=== PATIENT | male | born 1990 | race Caucasian/White ===

== ENCOUNTER 2021-06-11 12:42 | Day surgery (SDCO) | payer MEDICARE, OTHER ==
[~2021-06-11] VITALS: Ht 167.6 cm; Wt 63.6 kg
[~2021-06-11 12:42] MED LIST: FURADANTIN25 MG/5 ML PO; MACROBID100 MG PO; PYRIDIUM100 MG PO
[2021-06-11 14:05] LABS: BASOPHIL 0.5 % (0-2); EOSINOPHIL 1.3 % (0-5); HCT 48.2 % (42.0-52.0); HGB 15.5 g/dl (13.2-18.0); LYMPHOCYTE 13.1 % (15-48); MCH 30.5 pg (25.0-31.0); MCHC 32.2 g/dL (32.0-36.0); MCV 94.9 fL (78.0-100.0); MONOCYTE 8.8 % (0-12); NEUTROPHIL 76.1 % (41-80); NRBC 0; PLT 297 K/uL (150-400); RBC 5.08 M/uL (4.70-6.00); RDW 12.6 % (11.5-14.0); WBC 9.5 K/uL (4.0-10.5)
[2021-06-11 14:16] LABS: ALBUMIN 3.8 g/dL (3.4-5.0); BILIRUBIN - TOTAL 0.3 mg/dL (0.2-1.0); C-REACTIVE PROTEIN 0.8 mg/dL (<=0.90); CREATININE 1.03 mg/dL (0.67-1.17); GLOBULIN (CALCULATION) 4.3 g/dL; MAGNESIUM 2.7 mg/dL (1.8-2.4); POTASSIUM 4.4 mmol/L (3.5-5.1); TOTAL PROTEIN 8.1 g/dL (6.4-8.2)
[2021-06-11 14:25] LABS: LACTIC ACID 1.8 mmol/L (0.4-1.9)
[2021-06-11] MEDS ORDERED: GEODON60 MG PO (20:24)
[2021-06-11] MEDS ORDERED: DICLOFENAC SODI75 MG PO (20:24)
[2021-06-11] MEDS ORDERED: GEODON20 MG PO (20:24)
[2021-06-11] MEDS ORDERED: DEPAKOTE250 MG PO (20:25)
[2021-06-11] MEDS ORDERED: NEXIUM40 MG PO (20:25)
[2021-06-11] MEDS ORDERED: CLONIDINE 0.3M0.3 MG PO (20:27)
[2021-06-11] MEDS ORDERED: PROPRANOLOL HCL10 MG PO (20:28)
[2021-06-11] MEDS ORDERED: TRAZODONE 100M100 MG PO (20:28)
[2021-06-11] MEDS ORDERED: ECOTRIN81 MG PO (20:29)
[2021-06-11] MEDS ORDERED: CLARITIN10 MG PO (20:29)
[2021-06-11] MEDS ORDERED: DIAZEPAM 5MG TAB5 MG INH (20:34)
[2021-06-12 06:09] LABS: BILIRUBIN NEGATIVE (NEGATIVE); BLOOD 1+ Ery/uL (NEGATIVE); CLARITY CLEAR (CLEAR); COLOR YELLOW (YELLOW); GLUCOSE (U) NORMAL (NORMAL); LEUKOCYTES 1+ Leu/uL (NEGATIVE); NITRITE NEGATIVE (NEGATIVE); PROTEIN NEGATIVE (NEGATIVE); SPECIFIC GRAVITY <=1.005 (1.001-1.030); UROBILINOGEN 0.2 mg/dL (0.2-1.0)
[2021-06-12 06:34] LABS: BASOPHIL 1.4 % (0-2); EOSINOPHIL 3.1 % (0-5); HCT 41.1 % (42.0-52.0); HGB 13.2 g/dl (13.2-18.0); LYMPHOCYTE 45.4 % (15-48); MCH 30.6 pg (25.0-31.0); MCHC 32.1 g/dL (32.0-36.0); MCV 95.1 fL (78.0-100.0); MONOCYTE 11.3 % (0-12); MPV 10.5 fL (6.0-9.5); NEUTROPHIL 38.5 % (41-80); NRBC 0; PLT 252 K/uL (150-400); RBC 4.32 M/uL (4.70-6.00); RDW 12.5 % (11.5-14.0); WBC 5.7 K/uL (4.0-10.5)
[2021-06-12 06:42] LABS: BACTERIA 4+
[2021-06-12 06:52] LABS: BUN/CREAT RATIO (CALC) 19.1 RATIO; CREATININE 0.89 mg/dL (0.67-1.17)
[2021-06-12] MEDS ORDERED: IMODIUM2 MG PO (12:25)
[2021-06-12] MEDS ORDERED: LEVAQUIN500 MG PO (12:25)
== END 2021-06-12 13:25 | disposition home or self-care (01) ==
LOC: FER 12:42 → FMS 18:02
PROVIDERS: Emergency Medicine; Internal Medicine; ADMIT Family Medicine
DX: K52.89 Other specified noninfective gastroenteritis and colitis (principal); G80.9 Cerebral palsy, unspecified; G91.9 Hydrocephalus, unspecified; M17.10 Unilateral primary osteoarthritis, unspecified knee; Z20.822 Contact with and (suspected) exposure to COVID-19; Z79.82 Long term (current) use of aspirin; Z98.2 Presence of cerebrospinal fluid drainage device
CPT/HCPCS: 36415; 80048; 80053; 80164; 81001; 83605; 83690; 83735; 84145; 85025; 86140; 87449; 93005; G0378; J1956; J3480; J7030; Q9967; U0002